=== PATIENT | female | born 2000 | race Caucasian/White ===

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

== ENCOUNTER 2020-07-28 00:15 | Emergency (ER) | payer MEDICAID ==
[2020-07-28] MEDS ORDERED: Ondansetron 4 MG Tab.DIS PO ONE (00:35)
[2020-07-28 00:58] LABS: BLOOD UREA NITROGEN,BUN 15 mg/dL (7.0-18.0); CARBON DIOXIDE,CO2 29.8 mmol/L (21.0-32.0); CHLORIDE,CL 104 mmol/L (98-107); GLUCOSE RANDOM 103 mg/dL (74-106); LIPASE 279 U/L (73-393); POTASSIUM,K 3.7 mmol/L (3.5-5.1); SODIUM,NA 141 mmol/L (136-145)
--- NOTE | 2020-07-28 01:41 | EDM.PDOC ---
ED HPI GENERAL MEDICAL PROBLEM - General Chief Complaint: Gastrointestinal Problem Stated Complaint: GALL BLADDER ATTACK Time Seen by Provider: 07/28/20 00:28 - History of Present Illness INITIAL COMMENTS - FREE TEXT/NARRATIVE: CHIEF COMPLAINT(S): I think I am having gallbladder pain HISTORY OF PRESENT ILLNESS: This is a 20-year-old woman without any past medical history who comes to the emergency department with a chief complaint of "I think I am having gallbladder pain." The patient states that for the past 2 days now intermittently she has been experiencing pain which she describes as a bandlike sensation on her abdomen and on her ribs as she points to her left upper quadrant rated 7-8 out of 10 which she describes as stabbing and punching pain. She states that this evening she had 2 episodes of vomiting which was the food she had after dinner. She denies any hematemesis or bilious emesis. She denies any diarrhea. She states that the pain did not improve worsen after eating but she did have higgins this evening. She states that she recently gave to her daughter approximately 3 weeks ago via spontaneous vaginal delivery without any issues. She states that when she first noticed the stomach pains she thought it was indigestion so she went to use the restroom. She denies any diarrhea, constipation or blood in her stool. She denies any history of peptic ulcer disease, pancreatitis, gastritis. She denies any chest pain or shortness of breath. She denies any cough REVIEW OF SYSTEMS: Constitutional: Denies fever, chills. Eyes: Denies eye pain Ears, Nose, Mouth, & Throat: Denies earache Cardiovascular: Denies chest pain Respiratory: Denies shortness of breath Gastrointestinal: Positive for upper abdominal pain and vomiting. Denies diarrhea, hematochezia, hematemesis, bilious emesis Genitourinary: Denies hematuria dysuria, vaginal bleeding, vaginal discharge Skin:Denies a rash MSK: Denies joint pain Neurological: Denies blurred vision Psychiatric: Denies depression PAST MEDICAL HISTORY: As per history of present illness and as reviewed below otherwise noncontributory. SURGICAL HISTORY: As per history of present illness and as reviewed below otherwise noncontributory. SOCIAL HISTORY: As per history of present illness and as reviewed below otherwise noncontributory. FAMILY HISTORY: As per history of present illness and as reviewed below otherwise noncontributory. EXAMINATION OF ORGAN SYSTEMS/BODY AREAS: Constitutional: Blood pressure is 132/81, heart rate 66, respiratory rate 16 with an oxygen saturation of 97% on room air. Temperature 36.1 General: Overall well-appearing woman who is in no acute distress Psychiatric: Appropriate mood and affect. Eyes: No scleral icterus or conjunctival erythema ENMT: Moist mucous membranes. No pharyngeal erythema Cardiovascular: Regular, rate, and rhythm. No gallops, murmurs, or rubs. Bilateral upper extremity pulses symmetric and intact. No peripheral edema. No JVD. Respiratory: Lungs clear to auscultation bilaterally. No wheezes, rales, or rhonchi. Gastrointestinal: Soft, non-tender, non-distended. Normoactive bowel sounds no rebound or guarding. Genitourinary: No suprapubic tenderness Musculoskeletal: The patient has tenderness to palpation bilaterally on her inferior ribs without any overlying skin changes Skin: No lesions or abrasions. Neurological: Alert, GCS 15 MEDICAL DECISION MAKING AND COURSE IN THE ED WITH INTERPRETATION/REVIEW OF DIAGNOSTIC STUDIES: This is a 20-year-old woman with out any significant past medical history who comes to the emergency department with chief complaint of "I think I am having gallbladder pain." Who has stable vital signs and evidence of chest wall tenderness likely due to costochondritis. At this time the patient is afebrile, not tachycardic with no evidence of abdominal pain. I did offer the patient screening laboratory analysis and a bedside ultrasound. She was amenable to this plan. We provided the patient with Zofran for nausea relief. Laboratory: CBC is unremarkable. CMP is unremarkable except for mildly elevated creatinine at 1.4 and an alkaline phosphatase of 136 without any transaminitis. Lipase is normal at 279. Urinalysis was a clean catch and was moderate for leukocyte esterase, negative for nitrites, and moderate for blood. Interpretation: Likely negative given the recent vaginal delivery Bedside transabdominal ultrasound of the gallbladder On gallbladder ultrasound there was no evidence of cholelithiasis. The gallbladder wall measured 0.22. CBD could not be visualized. There was no Metz sign with ultrasound. After labs and ultrasound the patient was able to tolerate p.o. Her pain I do believe is secondary to costochondritis. I discussed with her the use of [id number] pain medication. I discussed if she had any new or worsening symptoms she should return to the emergency department. She was amenable to discharge at this time and had no further questions. DISPOSITION: The patient was discharged home in stable condition. The patient will follow up with primary care physician as needed CONDITION: Fair PROCEDURES: None FINAL IMPRESSION(S)/DIAGNOSES: 1. Acute bilateral lower rib pain likely costochondritis Kalen Tabares M.D. diaphram region Pain Score (Numeric/FACES): 10 - Related Data Allergies Allergy/AdvReac Type Severity Reaction Status Date / Time codeine Allergy Vomiting Verified 07/28/20 00:25 Home Meds: Home Meds Escitalopram [Lexapro] 10 mg PO DAILY 03/03/18 [History] Levothyroxine Sodium [Synthroid] 25 mcg PO DAILY 07/28/20 [History] Pnv No.95/Ferrous Fum/Folic AC [ Caplet] 1 each PO DAILY 07/28/20 [History] Past Medical History [employer] History: Reports: Psychiatric History: Reports: Anxiety, Depression - Infectious Disease History Infectious Disease History: Reports: Chicken Pox, RSV - Past Surgical History HEENT Surgical History: Reports: Adenoidectomy, Tonsillectomy Social & Family History - Family History Family Medical History: No Pertinent Family History - Tobacco Use Tobacco Use Status *Q: Never Tobacco User - Caffeine Use Caffeine Use: Reports: Coffee, Tea - Recreational Drug Use Recreational Drug Use: No ED ROS GENERAL - Review of Systems Review Of Systems: See Below ED EXAM, GI/ABD - Physical Exam Exam: See Below Course - Vital Signs Last Recorded V/S: Last Vital Signs Temp 35.9 C L 07/28/20 01:50 Pulse 71 07/28/20 01:50 Resp 16 07/28/20 01:50 BP 116/63 07/28/20 01:50 Pulse Ox 98 07/28/20 01:50 - Orders/Labs/Meds Labs: Laboratory Tests 07/28/20 07/28/20 07/28/20 Range/Units 00:31 00:31 00:50 WBC 9.15 (4.0-11.0) K/uL RBC 4.48 (4.30-5.90) M/uL Hgb 13.7 (12.0-16.0) g/dL Hct 40.7 (36.0-46.0) % MCV 90.8 (80.0-98.0) fL MCH 30.6 (27.0-32.0) pg MCHC 33.7 (31.0-37.0) g/dL RDW Std Deviation 38.8 (28.0-62.0) fl RDW Coeff of Ammon 12 (11.0-15.0) % Plt Count 265 (150-400) K/uL MPV 11.60 (7.40-12.00) fL Neut % (Auto) 47.9 L (48.0-80.0) % Lymph % (Auto) 40.0 (16.0-40.0) % Cloud % (Auto) 8.2 (0.0-15.0) % Eos % (Auto) 3.4 (0.0-7.0) % Baso % (Auto) 0.5 (0.0-1.5) % Neut # (Auto) 4.4 (1.4-5.7) K/uL Lymph # (Auto) 3.7 H (0.6-2.4) K/uL Cloud # (Auto) 0.8 (0.0-0.8) K/uL Eos # (Auto) 0.3 (0.0-0.7) K/uL Baso # (Auto) 0.1 (0.0-0.1) K/uL Sodium 141 (136-145) mmol/L Potassium 3.7 (3.5-5.1) mmol/L Chloride 104 (98-107) mmol/L Carbon Dioxide 29.8 (21.0-32.0) mmol/L BUN 15 (7.0-18.0) mg/dL Creatinine 1.4 H (0.6-1.0) mg/dL Est Cr Clr Drug Dosing TNP Estimated GFR (MDRD) 47.5 ml/min Glucose 103 (74-106) mg/dL Calcium 8.8 (8.5-10.1) mg/dL Total Bilirubin 0.2 (0.2-1.0) mg/dL AST 29 (15-37) IU/L ALT 58 (14-63) IU/L Alkaline Phosphatase 136 H (46-116) U/L Total Protein 7.8 (6.4-8.2) g/dL Albumin 3.6 (3.4-5.0) g/dL Globulin 4.2 H (2.6-4.0) g/dL Albumin/Globulin Ratio 0.9 (0.9-1.6) Lipase 279 (73-393) U/L Urine Color YELLOW Urine Appearance CLEAR Urine pH 6.5 (5.0-8.0) Ur Specific Rienzi 1.020 (1.001-1.035) Urine Protein NEGATIVE (NEGATIVE) mg/dL Urine Glucose (UA) NEGATIVE (NEGATIVE) mg/dL Urine Ketones NEGATIVE (NEGATIVE) mg/dL Urine Occult Blood MODERATE H (NEGATIVE) Urine Nitrite NEGATIVE (NEGATIVE) Urine Bilirubin NEGATIVE (NEGATIVE) Urine Urobilinogen 0.2 (<2.0) EU/dL Ur Leukocyte Esterase MODERATE H (NEGATIVE) Urine RBC 2-5 (0-2/HPF) Urine WBC 3-6 (0-5/HPF) Ur Epithelial Cells RARE (NONE-FEW) Urine Bacteria FEW (NEGATIVE) Urine Mucus LIGHT (NONE-MOD) Urine HCG, Qual (NEGATIVE) 07/28/20 Range/Units 00:50 WBC (4.0-11.0) K/uL RBC (4.30-5.90) M/uL Hgb (12.0-16.0) g/dL Hct (36.0-46.0) % MCV (80.0-98.0) fL MCH (27.0-32.0) pg MCHC (31.0-37.0) g/dL RDW Std Deviation (28.0-62.0) fl RDW Coeff of Ammon (11.0-15.0) % Plt Count (150-400) K/uL MPV (7.40-12.00) fL Neut % (Auto) (48.0-80.0) % Lymph % (Auto) (16.0-40.0) % Cloud % (Auto) (0.0-15.0) % Eos % (Auto) (0.0-7.0) % Baso % (Auto) (0.0-1.5) % Neut # (Auto) (1.4-5.7) K/uL Lymph # (Auto) (0.6-2.4) K/uL Cloud # (Auto) (0.0-0.8) K/uL Eos # (Auto) (0.0-0.7) K/uL Baso # (Auto) (0.0-0.1) K/uL Sodium (136-145) mmol/L Potassium (3.5-5.1) mmol/L Chloride (98-107) mmol/L Carbon Dioxide (21.0-32.0) mmol/L BUN (7.0-18.0) mg/dL Creatinine (0.6-1.0) mg/dL Est Cr Clr Drug Dosing Estimated GFR (MDRD) ml/min Glucose (74-106) mg/dL Calcium (8.5-10.1) mg/dL Total Bilirubin (0.2-1.0) mg/dL AST (15-37) IU/L ALT (14-63) IU/L Alkaline Phosphatase (46-116) U/L Total Protein (6.4-8.2) g/dL Albumin (3.4-5.0) g/dL Globulin (2.6-4.0) g/dL Albumin/Globulin Ratio (0.9-1.6) Lipase (73-393) U/L Urine Color Urine Appearance Urine pH (5.0-8.0) Ur Specific Rienzi (1.001-1.035) Urine Protein (NEGATIVE) mg/dL Urine Glucose (UA) (NEGATIVE) mg/dL Urine Ketones (NEGATIVE) mg/dL Urine Occult Blood (NEGATIVE) Urine Nitrite (NEGATIVE) Urine Bilirubin (NEGATIVE) Urine Urobilinogen (<2.0) EU/dL Ur Leukocyte Esterase (NEGATIVE) Urine RBC (0-2/HPF) Urine WBC (0-5/HPF) Ur Epithelial Cells (NONE-FEW) Urine Bacteria (NEGATIVE) Urine Mucus (NONE-MOD) Urine HCG, Qual NEGATIVE (NEGATIVE) Meds: Medications Discontinued Medications Generic Name Dose Route Start Last Admin Trade Name Freq PRN Reason Stop Dose Admin Ondansetron HCl 4 mg 07/28/20 00:35 07/28/20 00:58 Zofran Odt PO 07/28/20 00:36 4 mg ONETIME ONE Administration Departure - Departure Time of Disposition: 01:41 Disposition: Home, Self-Care 01 Condition: Fair Clinical Impression: Costochondritis - Discharge Information *PRESCRIPTION DRUG MONITORING PROGRAM REVIEWED*: No *COPY OF PRESCRIPTION DRUG MONITORING REPORT IN PATIENT CANDIS: No Instructions: Costochondritis, [id number], Dehydration, Adult, [id number] Referrals: PCP,None [Primary Care Provider] - Forms: ED Department Discharge Additional Instructions: You were evaluated on an emergent basis today. At this time your labs are normal except for mildly elevated creatinine which can indicate some dehydration. I recommend that you continue with p.o. fluid hydration including Pedialyte or Gatorade. We did perform a ultrasound of her gallbladder which appeared to be normal and your labs did not reveal any abnormalities of your liver or pancreas. I do believe your symptoms are likely secondary to rib inflammation given the tenderness on examination. I recommend the use of Tylenol and Motrin for pain relief. This may take some time to improve however if you have worsening of your abdominal pain, vomiting please return to the emergency department. Please follow-up with your primary care physician within 2 to 3 days. Please use: Tylenol 500-1000mg every 6 hours (DO NOT TAKE MORE THAN 4000mg in 1 day) Ibuprofen 400mg every 6 hours (Take with food as it can cause ulcers, GI upset) Example schedule: 8:00 AM (Tylenol 500-1000mg) 11:00 AM (Ibuprofen 400mg) 2:00 PM (Tylenol 500-1000mg) 5:00 PM (Ibuprofen 400mg) In addition to Tylenol and Motrin you may use over the counter creams such as Voltaren Cream or Lidocaine Cream (Lidoderm) as needed 4 times a day for symptomatic relief. Ice the area 20 minutes 4 times per day [facility] [address] [place] [address] [place] [address] The patient is informed of any results of their evaluation and diagnostic workup and all questions are answered. They are given discharge instructions and return precautions. The patient is stable for discharge. The patient states they understand and agree with the plan and that they will return if their symptoms get worse or if they have any new concerns. The following information is given to patients seen in the emergency department who are being discharged to home. This information is to outline your options for follow-up care. We provide all patients seen in our emergency department with a follow-up referral. The need for follow-up, as well as the timing and circumstances, are variable depending upon the specifics of your emergency department visit. If you don't have a primary care physician on staff, we will provide you with a referral. We always advise you to contact your personal physician following an emergency department visit to inform them of the circumstance of the visit and for follow-up with them and/or the need for any referrals to a consulting specialist. The emergency department will also refer you to a specialist when appropriate. This referral assures that you have the opportunity for follow-up care with a specialist. All of these measure are taken in an effort to provide you with optimal care, which includes your follow-up. Under all circumstances we always encourage you to contact your private physician who remains a resource for coordinating your care. When calling for follow-up care, please make the office aware that this follow-up is from your recent emergency room visit. If for any reason you are refused follow-up, please contact the [facility] Emergency Department at and asked to speak to the emergency department charge nurse. Sepsis Event Note (ED) - Evaluation Sepsis Screening Result: No Definite Risk
== END 2020-07-28 01:53 | disposition home or self-care (01) ==
LOC: MW.ED 00:15
DX: M94.0 Chondrocostal junction syndrome [Tietze] (principal); Z88.5 Allergy status to narcotic agent
CPT/HCPCS: 36415; 80053; 81001; 81025; 83690; 85025; 99284; A9270